=== PATIENT | male | born 1975 | race Caucasian/White ===

== ENCOUNTER → 2017-04-30 09:08 | Emergency (ER) | payer SELFPAY ==
[~2017-04-30 09:08] MED LIST: PPD test dose* 5 TU/0.1 ML TEST (*USE PPD ORDER SET*) ONE
== END | disposition home or self-care (01) ==
LOC: OHCORT 09:08 → UCCORT 09:08
DX: Z11.1 Encounter for screening for respiratory tuberculosis (principal)

== ENCOUNTER 2017-05-14 17:55 | Emergency (ER) | payer OTHER ==
[2017-05-14 18:08] VITALS: BP 144/79
[2017-05-14] MEDS ORDERED: Lidocaine 2% EPI 1:200000 MPF* 20 ML VIAL INJ ONE (18:11)
[2017-05-14] MEDS ORDERED: Lidocaine 2% W/EPI 1:100,000* 20 ML MDV ONE (18:15)
[2017-05-14] MEDS ORDERED: Lidocaine 2% W/EPI 1:100,000* 20 ML MDV INJ ONE (18:17)
[2017-05-14] MEDS ORDERED: Sulfamethox/Trimethoprim DS 800/160* TAB PO ONE (18:41)
--- NOTE | 2017-05-14 18:51 | UC ---
Skin Complaint HPI - HPI Summary HPI Summary: 42 yo male with painful lump on back for about one week progressively worsening no f/c - History of Current Complaint Chief Complaint: UCSkin Time Seen by Provider: 05/14/17 18:03 Stated Complaint: SKIN COMPLAINT Hx Obtained From: Patient Onset/Duration: Gradual Onset, Lasting Days Timing: Constant Onset Severity: Mild Current Severity: Moderate Pain Intensity: 4 Location: Discrete Character: Swelling, Pain, Redness, Raised, Painful Aggravating: Touch Alleviating: Nothing Associated Signs & Symptoms: Positive: Negative - Allergy/Home Medications Allergies/Adverse Reactions: Allergies Allergy/AdvReac Type Severity Reaction Status Date / Time Hydrocodone Allergy Itching Verified 05/14/17 18:09 Oxycodone Allergy Itching Verified 05/14/17 18:09 Wasp Venom Protein Allergy Anaphylatic Verified 05/14/17 18:09 Shock Zinc Allergy Anaphylatic Verified 05/14/17 18:09 Shock Home Medications: Home Medications Glaucoma Eye Drop 1 drop BOTH EYES BID 05/14/17 [History Confirmed 05/14/17] Review of Systems Constitutional: Negative Skin: Negative Eyes: Negative ENT: Negative Respiratory: Negative Cardiovascular: Negative Gastrointestinal: Negative Genitourinary: Negative Motor: Negative Neurovascular: Negative Musculoskeletal: Negative Neurological: Negative Psychological: Negative All Other Systems Reviewed And Are Negative: Yes PMH/Surg Hx/FS Hx/Imm Hx Previously Healthy: Yes - Surgical History Surgical History: Yes Surgery Procedure, Year, and Place: HYDROCELECTOMY. MAXILLO/FACIAL X 2. BARIATRIC/BYPASS SX. VASECTOMY - Family History Known Family History: Positive: Hypertension, Other - glaucoma - Social History Alcohol Use: Occasionally Substance Use Type: None Smoking Status (MU): Never Smoked Tobacco Physical Exam Triage Information Reviewed: Yes Appearance: Well-Appearing, No Pain Distress, Well-Nourished Vital Signs: Initial Vital Signs Temp 98.1 F 05/14/17 18:05 Pulse 80 05/14/17 18:05 Resp 14 05/14/17 18:05 BP 144/79 05/14/17 18:05 Pulse Ox 99 05/14/17 18:05 Vital Signs Reviewed: Yes Eyes: Positive: Conjunctiva Clear ENT: Positive: Hearing grossly normal. Negative: Nasal congestion, Nasal drainage, Trismus, Muffled/hoarse voice Neck: Positive: Supple, Nontender Respiratory: Positive: Lungs clear, Normal breath sounds, No respiratory distress, No accessory muscle use Cardiovascular: Positive: RRR, No Murmur Musculoskeletal: Positive: ROM Intact Neurological: Positive: Alert, Muscle Tone Normal Psychological Exam: Normal Skin Exam: Other - see image Course/Dx - Diagnoses Provider Diagnoses: abscess (back) with overlying cellulitis Procedures - Procedure Summary Procedure Summary: Incision and drainage of back abscess time out sterile prep anesth with 2 cc @% lido + epi incised scant serosanginous d/c culture obtained sterile dressing applies - Incision and Drainage Site: back Anesthesia: Local Instrument(s): Scalpel Discharge - Discharge Plan Condition: Stable Disposition: HOME Prescriptions: Sulfamethox/Trimethoprim DS* [Bactrim DS 800/160 TAB*] 1 tab PO BID #14 tab Patient Education Materials: Abscess (ED) Referrals: Ren Lee DO [Primary Care Provider] - 3 Days Additional Instructions: warm soapy compresses 2-4 x day until healed a culture is pending recheck for worsening symptoms I suggest recheck in about 3 days Images Front/Back of Body, Lg (Rock): 1 - 4x 4 cm area of erthyema and swelling/induration, not flutuant
== END 2017-05-14 19:00 | disposition home or self-care (01) ==
LOC: UCCORT 17:55
DX: L02.212 Cutaneous abscess of back [any part, except buttock and flank] (principal); L03.312 Cellulitis of back [any part except buttock and flank]; Z98.84 Bariatric surgery status; Z88.5 Allergy status to narcotic agent
CPT/HCPCS: 10060; 87070; 87077; 87186; 87205; 87640; 87641; 99212; A9270-GY; G0463

== ENCOUNTER 2017-06-04 18:58 | Emergency (ER) | payer OTHER ==
--- NOTE | 2017-06-04 19:31 | UC ---
Bite Injury/Animal HPI - HPI Summary HPI Summary: 42 YEAR OLD MALE RETURNS WITH COMPLAINS OF AN INFECTED INSECT BITE ON HIS BACK . ON A SIDE NOTE AN I/D WAS DONE AT [facility] AND ADDITIONAL ANTIBIOTICS WERE GIVEN TO HIM IN THE ER. - History of Current Complaint Stated Complaint: INFECTED INSECT BITE Time Seen by Provider: 06/04/17 19:30 - Allergies/Home Medications Allergies/Adverse Reactions: Allergies Allergy/AdvReac Type Severity Reaction Status Date / Time Hydrocodone Allergy Itching Verified 06/04/17 19:36 Oxycodone Allergy Itching Verified 06/04/17 19:36 Wasp Venom Protein Allergy Anaphylatic Verified 06/04/17 19:36 Shock Zinc Allergy Anaphylatic Verified 06/04/17 19:36 Shock PMH/Surg Hx/FS Hx/Imm Hx - Surgical History Surgical History: Yes Surgery Procedure, Year, and Place: HYDROCELECTOMY. MAXILLO/FACIAL X 2. BARIATRIC/BYPASS SX. VASECTOMY - Family History Known Family History: Positive: Hypertension, Other - glaucoma - Social History Alcohol Use: Occasionally Substance Use Type: None Smoking Status (MU): Never Smoked Tobacco Review of Systems Constitutional: Negative Skin: Rash Eyes: Negative ENT: Negative Respiratory: Negative Cardiovascular: Negative Gastrointestinal: Negative Genitourinary: Negative Motor: Negative Neurovascular: Negative Musculoskeletal: Negative Neurological: Negative Psychological: Negative All Other Systems Reviewed And Are Negative: Yes Physical Exam Triage Information Reviewed: Yes Eye Exam: Normal ENT Exam: Normal Dental Exam: Normal Neck exam: Normal Neck: Positive: 1 Respiratory Exam: Normal Cardiovascular Exam: Normal Abdominal Exam: Normal Musculoskeletal Exam: Normal Neurological Exam: Normal Psychological Exam: Normal Skin: Positive: rashes, Other - INSECT BITE ON THE BACK Bite Injury Course/Dx - Differential Dx/Diagnosis Provider Diagnoses: RASH. INSECT BITE ON BACK Discharge - Discharge Plan Condition: Stable Disposition: HOME Prescriptions: DOXYcycline CAP(*) [DOXYcycline 100MG CAP(*)] 100 mg PO BID #20 cap Mupirocin 2% OINT* [Bactroban 2 % Oint*] 1 applic TOPICAL BID #2 tube Patient Education Materials: Insect Bite or Sting (ED) Referrals: Ren Lee DO [Primary Care Provider] - If Needed
[2017-06-04 19:36] VITALS: BP 131/73
== END 2017-06-04 20:02 | disposition home or self-care (01) ==
LOC: UCCORT 18:58
DX: R21 Rash and other nonspecific skin eruption (principal); S20.4 Other and unspecified superficial injuries of back wall of thorax; W57.XXXS Bitten or stung by nonvenomous insect and other nonvenomous arthropods, sequela; Z88.5 Allergy status to narcotic agent; Z91.030 Bee allergy status; Z98.84 Bariatric surgery status
CPT/HCPCS: 99212; G0463

== ENCOUNTER 2018-03-21 16:59 | Emergency (ER) | payer OTHER ==
[2018-03-21 17:27] VITALS: BP 126/73
--- NOTE | 2018-03-21 17:56 | UC ---
Respiratory Complaint HPI - HPI Summary HPI Summary: 42 yo male presents with fatigue, fever, sore throat and sinus pain/congestion for the last 3 days. He has been taking ibuprofen with mild relief of discomfort and fever. Denies cough, SOB, chest pain, abdominal pain, n/v/d/c. - History of Current Complaint Chief Complaint: UCRespiratory Stated Complaint: FEVER, CHILLS Time Seen by Provider: 03/21/18 17:31 Hx Obtained From: Patient Onset/Duration: Gradual Onset Severity Initially: Moderate Severity Currently: Moderate Pain Intensity: 7 Pain Scale Used: 0-10 Numeric Character: Cough: Nonproductive - Allergies/Home Medications Allergies/Adverse Reactions: Allergies Allergy/AdvReac Type Severity Reaction Status Date / Time egg Allergy GI Upset Verified 03/21/18 17:20 hydrocodone Allergy Itching Verified 03/21/18 17:19 lactose Allergy GI Upset Verified 03/21/18 17:21 oxycodone Allergy Itching Verified 03/21/18 17:19 zinc Allergy Anaphylatic Verified 03/21/18 17:19 Shock wasp Allergy Anaphylatic Uncoded 03/21/18 17:19 Shock PMH/Surg Hx/FS Hx/Imm Hx - Additional Past Medical History Additional PMH: None Previously Healthy: Yes - Surgical History Surgical History: Yes Surgery Procedure, Year, and Place: HYDROCELECTOMY. MAXILLO/FACIAL X 2. BARIATRIC/BYPASS SX. VASECTOMY. LST Left ey surgery - Family History Known Family History: Positive: Hypertension, Other - glaucoma - Social History Occupation: Employed Full-time Lives: With Family Alcohol Use: Occasionally Substance Use Type: None Smoking Status (MU): Never Smoked Tobacco Review of Systems Constitutional: Fever, Fatigue Skin: Negative Eyes: Negative ENT: Sore Throat, Sinus Congestion, Sinus Pain/Tenderness Respiratory: Negative Cardiovascular: Negative Gastrointestinal: Negative Neurovascular: Negative Neurological: Negative Psychological: Negative All Other Systems Reviewed And Are Negative: Yes Physical Exam - Summary Physical Exam Summary: GENERAL: Mildly ill appearing. NAD. SKIN: No rashes, sores, lesions, or open wounds. HEENT: Head: AT/NC Eyes: Conjunctiva clear without inflammation or discharge. Ears: Hearing grossly normal. TMs intact, no bulging, erythema, or edema. Nose: Nasal mucosa mildly swollen and erythematous with yellow/ clear discharge. TTP maxillary and frontal sinus. Throat: Posterior oropharynx moderate erythema. No tonsillar enlargement. No exudates. Uvula midline. No hoarse voice or muffled voice. NECK: Supple. Nontender. No lymphadenopathy. CHEST: CTAB. No r/r/w. No accessory muscle use. Breathing comfortably and in no distress. CV: RRR. Without m/r/g. Pulses intact. Brisk cap refill. NEURO: Alert. CN II-XII grossly intact. PSYCH: Age appropriate behavior. Triage Information Reviewed: Yes Vital Signs: Initial Vital Signs Temp 100.2 F 03/21/18 17:21 Pulse 94 03/21/18 17:21 Resp 25 03/21/18 17:21 BP 126/73 03/21/18 17:21 Pulse Ox 96 03/21/18 17:21 Diagnostic Evaluation - Laboratory O2 Sat by Pulse Oximetry: 96 Respiratory Course/Dx - Course Course Of Treatment: POC strep and flu negative. Suspect sinusitis and pharyngitis. - Differential Dx/Diagnosis Provider Diagnoses: Sinusitis. Pharyngitis Discharge - Sign-Out/Discharge Documenting (check all that apply): Discharge/Admit/Transfer - Discharge Plan Condition: Stable Disposition: HOME Prescriptions: Amoxicillin PO (*) [Amoxicillin 500 MG CAP*] 500 mg PO Q12H #20 cap Patient Education Materials: Pharyngitis (ED) Forms: *Work Release Referrals: Maris Thrasher MD [Primary Care Provider] - Additional Instructions: If you develop a fever, shortness of breath, chest pain, new or worsening symptoms - please call your PCP or go to the ED. 1) Continue taking ibuprofen for fever and general discomfort - Billing Disposition and Condition Condition: STABLE Disposition: HOME
== END 2018-03-21 18:12 | disposition home or self-care (01) ==
LOC: UCCORT 16:59
DX: J32.9 Chronic sinusitis, unspecified (principal); J02.9 Acute pharyngitis, unspecified; Z91.030 Bee allergy status; Z91.012 Allergy to eggs; Z91.011 Allergy to milk products; Z88.5 Allergy status to narcotic agent; Z91.048 Other nonmedicinal substance allergy status
CPT/HCPCS: 87502; 87651; 99212; G0463